=== PATIENT | male | born 1995 | race Caucasian/White ===

== ENCOUNTER 2024-09-16 11:48 | Emergency (ER) | payer OTHER, MEDICAID ==
[~2024-09-16] VITALS: Ht 165.1 cm; Wt 67.4 kg
[2024-09-16] MEDS ORDERED: GENVOYA TABLET1 EACH PO (12:05)
[2024-09-16 12:23] LABS: BASOPHILS 0.2 % (0.2-1.2); EOSINOPHILS 0.8 % (0.8-7.0); LYMPHOCYTES 17.3 % (21.8-53.1); MCH 32.3 PG (25.7-32.2); MCHC 35.1 g/dL (32.3-36.5); MCV 91.8 fL (79.0-92.2); MONOCYTES 6.4 % (5.3-12.2); NEUTROPHILS 74.9 % (34.0-67.9); RBC 4.65 M/uL (4.63-6.08)
[2024-09-16 12:41] LABS: ALT (SGPT) 20.0 U/L (14-59); AST (SGOT) 17.0 U/L (15-37); GLOMERULAR FILTRATION RATE,EST 89.0 mL/min (>60); PROTEIN, TOTAL 7.3 g/dL (6.4-8.2); UREA NITROGEN 11.0 mg/dL (7-18)
[2024-09-16] MEDS ORDERED: ONDANSETRON ODT4 MG PO (13:49)
[2024-09-16 14:09] VITALS: BP 133/75
== END 2024-09-16 14:09 | disposition home or self-care (01) ==
LOC: ED 11:48
PROVIDERS: Emergency Medicine
DX: S00.11XA Contusion of right eyelid and periocular area, initial encounter (principal); W17.89XA Other fall from one level to another, initial encounter; Z79.899 Other long term (current) drug therapy; Z88.5 Allergy status to narcotic agent
CPT/HCPCS: 36415; 70450; 80053; 85025; 96374; 99284-25; J2405